=== PATIENT | male | born 1965 | race Hispanic/Latino ===

== ENCOUNTER 2019-11-26 10:54 | Inpatient (IN) | payer OTHER, SELFPAY ==
[2019-11-26] MEDS ORDERED: dexAMETHasone 4 MG/ML VIAL ONE (11:39)
[2019-11-26] MEDS ORDERED: NA CHLORIDE 0.9% 1,000 ML ONE ×3 (11:39→13:07)
[2019-11-26 11:47] LABS: Absolute Lymphocytes (CBC) 0.6 K/uL (0.7-4.9)
[2019-11-26 12:01] LABS: Basophils % 0.3 % (0-1.3); Hematocrit 39.4 % (39.6-49.0); Lymphocytes % 2.2 % (15.3-44.8); MPV 10.3 fL (7.6-11.3); RBC Red Blood Cell Count 4.41 M/uL (4.33-5.43)
[2019-11-26 12:21] LABS: Protime INR 1.18
[2019-11-26 12:24] LABS: Albumin 2.1 g/dL (3.4-5.0); Bilirubin Direct 2.5 mg/dL (0-0.2); Ferritin 1661.9 ng/mL (26-388); Potassium 3.4 mmol/L (3.5-5.1); Protein, Total 7.1 g/dL (6.4-8.2)
[2019-11-26 12:26] LABS: CKMB Creatine Kinase MB 25.4 ng/mL (0.3-3.6); Troponin (Emerg Dept Use Only) 6.33 ng/mL (0.0-0.045)
[2019-11-26 12:28] LABS: Urine Blood 2+ (NEG); Urine Glucose NEGATIVE (NEG); Urine Protein 2+ (NEG); Urine Specific Gravity 1.015 (1.005-1.030)
[2019-11-26] MEDS ORDERED: AZITHROMYCIN 500 MG/250 ML BAG IV ONE (12:30)
[2019-11-26] MEDS ORDERED: HEPARIN/D5W 25,000 UNIT/500 ML BAG IV ONE (12:33)
[2019-11-26] MEDS ORDERED: CEFTRIAXONE/SWI 1gm 1 GM/10 ML SYR ONE (12:36)
[2019-11-26 12:41] LABS: Urine Amorphous Sediment 4+ /HPF (NONE SEEN); Urine Bacteria <20 /HPF (NONE SEEN); Urine Culture Reflex Order NOT NEEDED; Urine RBC <5 /HPF (NONE SEEN)
[2019-11-26] MEDS ORDERED: ZINC SULFATE 220 MG CAP ONE (13:05)
[2019-11-26] MEDS ORDERED: MELATONIN 3 MG TABLET PO ONE (13:15)
[2019-11-26] MEDS ORDERED: ASCORBIC ACID 500 MG TABLET ONE (13:15)
--- NOTE | 2019-11-26 13:18 | RAD REPORT ---
EXAM DESCRIPTION: [place] Single View11/26/2019 11:56 am CLINICAL HISTORY: Shortness of breath/sepsis COMPARISON: none FINDINGS: Mild right basilar opacity. Mild atelectasis left lung base The heart is normal size IMPRESSION: Mild right basilar opacity probably pneumonia
--- NOTE | 2019-11-26 13:26 | RAD REPORT ---
EXAM DESCRIPTION: CT - Thorax Wo Con - 11/26/2019 1:14 pm CLINICAL HISTORY: sob COMPARISON: none TECHNIQUE: Computed axial tomography of the chest was obtained. Contrast was not given secondary to elevated creatinine All CT scans are performed using dose optimization technique as appropriate and may include automated exposure control or mA/KV adjustment according to patient size. FINDINGS: The evaluation of mediastinum, bri and vessels is limited secondary to lack of IV contras t administration. Mild right middle and right lower lobe opacities. Mild left lower lobe atelectasis Calcified mediastinal lymph node. A pleural effusion is not present. A small pericardial effusion or thickening IMPRESSION: Mild right middle and right lower lobe opacities probably pneumonia
[2019-11-26 13:34] LABS: Blood Morphology Comment NOT SEEN (NOT SEEN); Dohle Bodies PRESENT; Platelet Estimate ADEQ
--- NOTE | 2019-11-26 13:51 | ER ---
Nurse's Notes [facility] Name: Vamshi Jones Age: 54 yrs Sex: Male : 1965 Arrival Date: 11/26/2019 Time: 10:58 Bed 5 Private MD: Diagnosis: Pneumonia due to SARS-associated coronavirus Presentation: 11/25 11:03 Chief complaint: Patient states: body aches and SOB x 2 days ago. Pt denies cough, pt aa5 states "I went to a clinic 2 days ago and they said I had a fever and they gave me some kind of shot". 11:03 Coronavirus screen: fever, muscle pain, shortness of breath, Client presents with at aa5 least one sign or symptom that may indicate coronavirus-19. Standard/surgical mask placed on the client. Provider contacted for isolation considerations. Ebola Screen: Patient negative for fever greater than or equal to 101.5 degrees Fahrenheit, and additional compatible Ebola Virus Disease symptoms. Initial Sepsis Screen: Does the patient meet any 2 criteria? Systolic BP < 90 mmHg. HR > 90 bpm. Yes Does the patient have a suspected source of infection? Yes:. Risk Assessment: Do you want to hurt yourself or someone else? Patient reports no desire to harm self or others. Onset of symptoms was November 2019. 11:03 Acuity: YUSUF 2 aa5 11:03 Method Of Arrival: Wheelchair aa5 Triage Assessment: 11:10 Respiratory: Onset: The symptoms/episode began/occurred x 2-3 days, the patient has rb1 moderate shortness of breath. Historical: - Allergies: 11:03 No Known Allergies; aa5 - PMHx: 11:03 Hypertension; aa5 - PSHx: 11:03 None; aa5 - Immunization history:: Adult Immunizations unknown. - Social history:: Smoking status: Patient denies any tobacco usage or history of. Screenin:10 Abuse screen: Denies threats or abuse. Nutritional screening: No deficits noted. rb1 Tuberculosis screening: No symptoms or risk factors identified. Fall Risk None identified. Assessment: 11:10 General: Appears comfortable, Behavior is calm, cooperative, Reports fever for 2-3 rb1 days. Neuro: Level of Consciousness is awake, alert, obeys commands, Oriented to person, place, time, situation. Cardiovascular: Capillary refill < 3 seconds. Respiratory: Reports shortness of breath since x 2-3 days Airway is patent Respiratory effort is even, unlabored, Respiratory pattern is regular, symmetrical, Denies cough. Derm: Skin is diaphoretic. Musculoskeletal: No signs and/or symptoms reported regarding the musculoskeletal system. 12:00 Reassessment: Patient appears in no apparent distress at this time. Patient and/or rb1 family updated on plan of care and expected duration. Pain level reassessed. Patient is alert, oriented x 3, equal unlabored respirations, skin warm/dry/pink. No longer diaphoretic. 13:00 Reassessment: Patient appears in no apparent distress at this time. No changes from rb1 previously documented assessment. 14:00 Reassessment: Patient appears in no apparent distress at this time. Patient and/or rb1 family updated on plan of care and expected duration. Pain level reassessed. Patient is alert, oriented x 3, equal unlabored respirations, skin warm/dry/pink. 15:00 Reassessment: Patient appears in no apparent distress at this time. No changes from rb1 previously documented assessment. 15:15 Reassessment: Gave report to LUIS MANUEL Contreras. Information from the SBAR was given. All rb1 questions asked and answered. Vital Signs: 11:03 BP 82 / 67; Pulse 122; Resp 20 S; Temp 99.7(O); Pulse Ox 98% on R/A; Weight 100.7 kg aa5 (R); Height 5 ft. 9 in. (175.26 cm) (R); Pain 7/10; 11:15 BP 100 / 69; Pulse 119; Resp 17; Pulse Ox 97% ; rb1 12:45 BP 96 / 64; Pulse 112; Resp 18; Pulse Ox 99% on 2 lpm NC; rb1 13:44 BP 102 / 77; Pulse 112; Resp 17; Pulse Ox 99% on 2 lpm NC; rb1 14:30 BP 106 / 74; Pulse 112; Resp 17; Pulse Ox 99% on 2 lpm NC; rb1 15:30 BP 107 / 80; Pulse 108; Resp 18; Pulse Ox 99% on 2 lpm NC; rb1 11:03 Body Mass Index 32.78 (100.70 kg, 175.26 cm) aa5 ED Course: 10:58 Patient arrived in ED. ag5 11:03 Arm band placed on Patient placed in an exam room, on a stretcher. aa5 11:07 Floresita Clay, RN is Primary Nurse. rb1 11:10 Patient has correct armband on for positive identification. Bed in low position. Call rb1 light in reach. Side rails up X 1. athletic monitor on. Pulse ox on. NIBP on. 11:11 Montes De Oca TiaQI-C is PHCP. snw 11:11 Joni Casper MD is Attending Physician. snw 11:17 Triage completed. aa5 11:24 Inserted saline lock: 20 gauge in right antecubital area, using aseptic technique. rb1 Blood collected. 11:26 EKG done, by ED staff, reviewed by Joni Casper MD. em1 11:42 Flu Sent. rb1 11:43 Strep Sent. rb1 11:46 Inserted saline lock: 20 gauge in left antecubital area, using aseptic technique. rb1 11:57 Chest Single View XRAY In Process Unspecified. EDMS 12:29 Time Study Technologist paged at 12:29. eb 12:45 Time Study Technologist returned call at 12:45. eb 13:14 Thorax Wo Con In Process Unspecified. EDMS 13:49 Erickson Warren MD is Hospitalizing Provider. snw 15:45 No provider procedures requiring assistance completed. Patient admitted, IV remains in rb1 place. Administered Medications: 11:19 CANCELLED (Duplicate Order): NS 0.9% (30 ml/kg) 30 ml/kg IV at bolus once; Sepsis snw Protocol 11:30 Drug: Decadron - Dexamethasone 10 mg Route: IVP; Site: right antecubital; aa5 11:44 Follow up: Response: No adverse reaction rb1 11:30 Drug: NS 0.9% 1000 ml Route: IV; Rate: 1 bolus; Site: right antecubital; aa5 12:44 Follow up: IV Status: Completed infusion rb1 12:30 Drug: Heparin (DVT/PE Drip) 18 units/kg/hr - (HEParin 90448 units, D5W 500 ml) rb1 {Co-Signature: aa5 (Bailee Almeida RN).} Route: IV; Rate: calculated rate; Site: right antecubital; 12:32 Drug: Rocephin 1 grams Route: IV; Rate: calculated rate; Site: left antecubital; rb1 12:47 CANCELLED (Per Dr. Madden, secondary to prolonged QT): Zithromax 500 mg IVPB once over snw 1 hrs; mix in 250 mL NS 12:58 Drug: Zinc Sulfate 220 mg Route: PO; rb1 13:42 Follow up: Response: No adverse reaction rb1 12:59 Drug: NS 0.9% 1000 ml Route: IV; Rate: 1000 ml; Site: left antecubital; rb1 13:04 Drug: Ascorbic Acid 500 mg Route: PO; rb1 14:00 Follow up: Response: No adverse reaction rb1 14:08 Drug: Melatonin 3 mg Route: PO; rb1 14:35 Follow up: Response: No adverse reaction rb1 14:09 Drug: vancoMYCIN 1 grams Route: IVPB; Infused Over: 2 hrs; Site: left antecubital; rb1 14:11 Drug: NS 0.9% 1000 ml Route: IV; Rate: 100 ml/hr; Site: left antecubital; rb1 Outcome: 13:51 Decision to Hospitalize by Provider. snw 15:45 Admitted to ICU accompanied by nurse, accompanied by tech, via stretcher, room 1, with rb1 oxygen, on monitor, Report called to LUIS MANUEL Contreras 15:45 Condition: stable 15:45 Instructed on the need for admit. 15:55 Patient left the ED. eb Signatures: Dispatcher [employer] EDTia Martin FNP-C LEGAL SPECIALIST-CsnDickson Thomas em1 Bailee Almeida, LUIS MANUEL RN aa5 Floresita Clay RN RN rb1 Diane Frost Ajare ag5 Bailee Almeida RN aa5 Corrections: (The following items were deleted from the chart) 12:09 11:42 CORONAVIRUS+MR.LAB.BRZ drawn and sent. rb1 EDMS
--- NOTE | 2019-11-26 13:51 | EDPHYS ---
Physician Documentation [facility] Name: Vamshi Jones Age: 54 yrs Sex: Male : 1965 Arrival Date: 11/26/2019 Time: 10:58 Bed 5 Private MD: ED Physician Joni Casper HPI: 11/25 11:23 This 54 yrs old Male presents to ER via Wheelchair with complaints of Blood snw Pressure Problem, Breathing Difficulty, Body Aches, Sweating. 11:23 Onset: The symptoms/episode began/occurred suddenly, 2 day(s) ago, and became snw persistent. Associated signs and symptoms: Pertinent positives: shortness of breath, Pertinent negatives: chest pain. The patient has not experienced similar symptoms in the past. The patient has been recently seen by a physician: 2 day(s) ago, with similar presenting complaints, was given a prescription for antibiotics. Historical: - Allergies: 11:03 No Known Allergies; aa5 - PMHx: 11:03 Hypertension; aa5 - PSHx: 11:03 None; aa5 - Immunization history:: Adult Immunizations unknown. - Social history:: Smoking status: Patient denies any tobacco usage or history of. ROS: 11:22 Constitutional: Negative for fever, chills, and weight loss, Eyes: Negative for injury, snw pain, redness, and discharge, ENT: Negative for injury, pain, and discharge, Neck: Negative for injury, pain, and swelling, Cardiovascular: Negative for chest pain, palpitations, and edema. 11:22 Abdomen/GI: Negative for abdominal pain, nausea, vomiting, diarrhea, and constipation, Back: Negative for injury and pain, : Negative for injury, bleeding, discharge, and swelling, MS/Extremity: Negative for injury and deformity, Skin: Negative for injury, rash, and discoloration, Neuro: Negative for headache, weakness, numbness, tingling, and seizure, Psych: Negative for depression, anxiety, suicide ideation, homicidal ideation, and hallucinations. 11:22 Respiratory: Positive for shortness of breath, Negative for cough. Exam: 11:20 Head/Face: Normocephalic, atraumatic. Eyes: Pupils equal round and reactive to light, snw extra-ocular motions intact. Lids and lashes normal. Conjunctiva and sclera are non-icteric and not injected. Cornea within normal limits. Periorbital areas with no swelling, redness, or edema. ENT: Nares patent. No nasal discharge, no septal abnormalities noted. Tympanic membranes are normal and external auditory canals are clear. Oropharynx with no redness, swelling, or masses, exudates, or evidence of obstruction, uvula midline. Mucous membranes moist. Neck: Trachea midline, no thyromegaly or masses palpated, and no cervical lymphadenopathy. Supple, full range of motion without nuchal rigidity, or vertebral point tenderness. No Meningismus. Chest/axilla: Normal chest wall appearance and motion. Nontender with no deformity. No lesions are appreciated. 11:20 Constitutional: The patient appears alert, awake, anxious, in obvious distress, mildly distressed, pale. 11:20 Cardiovascular: Rate: tachycardic, Rhythm: regular, Pulses: no pulse deficits are appreciated, Heart sounds: normal, Edema: is not appreciated, JVD: is not appreciated. 11:20 ECG was reviewed by the Attending Physician. Vital Signs: 11:03 BP 82 / 67; Pulse 122; Resp 20 S; Temp 99.7(O); Pulse Ox 98% on R/A; Weight 100.7 kg aa5 (R); Height 5 ft. 9 in. (175.26 cm) (R); Pain 7/10; 11:15 BP 100 / 69; Pulse 119; Resp 17; Pulse Ox 97% ; rb1 12:45 BP 96 / 64; Pulse 112; Resp 18; Pulse Ox 99% on 2 lpm NC; rb1 13:44 BP 102 / 77; Pulse 112; Resp 17; Pulse Ox 99% on 2 lpm NC; rb1 14:30 BP 106 / 74; Pulse 112; Resp 17; Pulse Ox 99% on 2 lpm NC; rb1 15:30 BP 107 / 80; Pulse 108; Resp 18; Pulse Ox 99% on 2 lpm NC; rb1 11:03 Body Mass Index 32.78 (100.70 kg, 175.26 cm) aa5 MDM: 11:33 Patient medically screened. snw 12:39 Data reviewed: vital signs, nurses notes. Data interpreted: Pulse oximetry: on room air snw is 98 %. Interpretation: acceptable. Counseling: I had a detailed discussion with the patient and/or guardian regarding: the historical points, exam findings, and any diagnostic results supporting the discharge/admit diagnosis, lab results, radiology results, the need for further work-up and treatment in the hospital, to ICU. 12:41 Physician consultation: Joni Casper MD regarding patient's condition, will admit to [facility] ICU. 11/25 11:13 Order name: Sed Rate; Complete Time: 13:35 snw 11/25 11:13 Order name: C-Reactive Protein; Complete Time: 12:33 snw 11/25 11:13 Order name: T\T\S; Complete Time: 12:54 snw 11/25 11:13 Order name: Amylase, Serum; Complete Time: 12:33 snw 11/25 11:13 Order name: Basic Metabolic Panel; Complete Time: 12:33 snw 11/25 11:13 Order name: Blood Culture Adult (2) snw 11/25 11:13 Order name: CBC with Diff; Complete Time: 13:35 snw 11/25 11:13 Order name: Ckmb; Complete Time: 12:33 snw 11/25 11:13 Order name: CPK; Complete Time: 12:33 snw 11/25 11:13 Order name: Lactate; Complete Time: 12:33 snw 11/25 11:13 Order name: LFT's; Complete Time: 12:33 snw 11/25 11:13 Order name: Lipase; Complete Time: 12:33 snw 11/25 11:13 Order name: Procalcitonin; Complete Time: 12:39 snw 11/25 11:13 Order name: Protime (+inr); Complete Time: 12:39 snw 11/25 11:13 Order name: Ptt, Activated; Complete Time: 12:40 snw 11/25 11:13 Order name: Troponin (emerg Dept Use Only); Complete Time: 12:33 snw 11/25 11:13 Order name: Urine Microscopic Only; Complete Time: 12:42 snw 11/25 11:13 Order name: Flu; Complete Time: 12:18 snw 11/25 11:13 Order name: Strep; Complete Time: 12:02 snw 11/25 11:14 Order name: Ferritin; Complete Time: 12:33 snw 11/25 11:14 Order name: DD; Complete Time: 12:40 snw 11/25 11:34 Order name: Glucose, Ancillary Testing; Complete Time: 11:35 EDMS 11/25 12:00 Order name: Throat Culture EDMS 11/25 12:09 Order name: SARS-COV-2 RT PCR; Complete Time: 13:35 EDMS 11/25 12:12 Order name: Urine Dipstick--Ancillary (enter results); Complete Time: 12:33 eb 11/25 13:31 Order name: Manual Differential; Complete Time: 13:35 EDMS 11/25 13:41 Order name: ABO/RH no charge; Complete Time: 13:48 EDMS 11/25 14:41 Order name: Lipid Profile EDMS 11/25 14:41 Order name: Lipid Profile; Complete Time: 15:42 EDMS 11/25 11:13 Order name: Chest Single View XRAY; Complete Time: 13:35 snw 11/25 11:13 Order name: Accucheck; Complete Time: 11:26 snw 11/25 12:58 Order name: Thorax Wo Con; Complete Time: 13:35 EDMS 11/25 14:40 Order name: Heart Healthy EDMS 11/25 14:40 Order name: Echo with Doppler EDMS 11/25 14:41 Order name: Troponin I EDKY 11/25 14:41 Order name: Troponin I EDKY 11/25 14:41 Order name: Troponin I EDKY 11/25 14:41 Order name: Troponin I EDKY 11/25 14:48 Order name: CBC without Diff EDMS 11/25 14:48 Order name: CBC without Diff EDMS 11/25 14:48 Order name: CBC without Diff EDMS 11/25 14:48 Order name: Comprehensive Metabolic Panel EDKY 11/25 14:48 Order name: Comprehensive Metabolic Panel EDKY 11/25 14:48 Order name: Comprehensive Metabolic Panel EDMS 11/25 14:50 Order name: Diet Regular; Complete Time: 14:50 eb 11/25 14:50 Order name: Cortisol EDMS 11/25 15:34 Order name: Lactate Sepsis 2 HR Follow-up; Complete Time: 15:42 EDMS 11/25 11:13 Order name: Cardiac monitoring; Complete Time: 11:31 snw 11/25 11:13 Order name: EKG - Nurse/Tech; Complete Time: 11:26 snw 11/25 11:13 Order name: IV Saline Lock - Large Bore; Complete Time: 11:31 snw 11/25 11:13 Order name: Labs collected and sent; Complete Time: 11:31 snw 11/25 11:13 Order name: O2 Per Protocol; Complete Time: 11:31 snw 11/25 11:13 Order name: O2 Sat Monitoring; Complete Time: 11:32 snw 11/25 11:13 Order name: Urine Dipstick-Ancillary (obtain specimen); Complete Time: 12:11 snw 11/25 11:52 Order name: Labs - recollect needed: blue top; Complete Time: 12:15 eb EC:20 Rate is 118 beats/min. Rhythm is regular. QRS [place] is Normal. No Q waves. Clinical snw impression: Sinus tachycardia. Administered Medications: 11:19 CANCELLED (Duplicate Order): NS 0.9% (30 ml/kg) 30 ml/kg IV at bolus once; Sepsis snw Protocol 11:30 Drug: Decadron - Dexamethasone 10 mg Route: IVP; Site: right antecubital; aa5 11:44 Follow up: Response: No adverse reaction rb1 11:30 Drug: NS 0.9% 1000 ml Route: IV; Rate: 1 bolus; Site: right antecubital; aa5 12:44 Follow up: IV Status: Completed infusion rb1 12:30 Drug: Heparin (DVT/PE Drip) 18 units/kg/hr - (HEParin 35728 units, D5W 500 ml) rb1 {Co-Signature: aa5 (Bailee Almeida RN).} Route: IV; Rate: calculated rate; Site: right antecubital; 12:32 Drug: Rocephin 1 grams Route: IV; Rate: calculated rate; Site: left antecubital; rb1 12:47 CANCELLED (Per Dr. Madden, secondary to prolonged QT): Zithromax 500 mg IVPB once over snw 1 hrs; mix in 250 mL NS 12:58 Drug: Zinc Sulfate 220 mg Route: PO; rb1 13:42 Follow up: Response: No adverse reaction rb1 12:59 Drug: NS 0.9% 1000 ml Route: IV; Rate: 1000 ml; Site: left antecubital; rb1 13:04 Drug: Ascorbic Acid 500 mg Route: PO; rb1 14:00 Follow up: Response: No adverse reaction rb1 14:08 Drug: Melatonin 3 mg Route: PO; rb1 14:35 Follow up: Response: No adverse reaction rb1 14:09 Drug: vancoMYCIN 1 grams Route: IVPB; Infused Over: 2 hrs; Site: left antecubital; rb1 14:11 Drug: NS 0.9% 1000 ml Route: IV; Rate: 100 ml/hr; Site: left antecubital; rb1 Disposition: 16:05 Co-signature as Attending Physician, Joni Casper MD I agree with the assessment and kdr plan of care. Disposition: 11/26/19 13:51 Hospitalization ordered by Erickson Warren for Inpatient Admission. Preliminary diagnosis is Pneumonia due to SARS-associated coronavirus. - Bed requested for Intensive Care Unit. - Status is Inpatient Admission. eb - Condition is Fair. - Problem is new. - Symptoms have worsened. Signatures: Dispatcher [employer] EDKY Joni Casper MD MD kdr Tia Montes De Oca, BEHAVIORAL CONSULTANT-C BEHAVIORAL CONSULTANT-Csnw Bailee Almeida RN RN aa5 Floresita Clay RN RN rb1 Diane Frost RN aa5 Corrections: (The following items were deleted from the chart) 11:19 11:13 NS 0.9% (30 ml/kg) 30 ml/kg IV at bolus once; Sepsis Protocol ordered. [facility] snw 12:09 11:15 CORONAVIRUS+MR.LAB.BRZ ordered. EDKY EDMS 12:47 12:19 Zithromax 500 mg IVPB once over 1 hrs; mix in 250 mL NS ordered. sn snw 12:47 12:47 Zithromax 500 mg IVPB once over 1 hrs; mix in 250 mL NS ordered. sn snw 12:57 11:45 Chest For PE Angio+CT.RAD.BRZ ordered. EDKY EDMS 13:17 11:13 Adkins ordered. snw rb1 14:52 13:51 Hospitalization Ordered by Erickson Warren MD for Inpatient Admission. aa5 Preliminary diagnosis is Pneumonia due to SARS-associated coronavirus. Bed requested for Intensive Care Unit. Status is Inpatient Admission. Condition is Fair. Problem is new. Symptoms have worsened. snw 15:55 14:52 11/26/2019 13:51 Hospitalization Ordered by Erickson Warren MD for Inpatient eb Admission. Preliminary diagnosis is Pneumonia due to SARS-associated coronavirus. Bed requested for Intensive Care Unit. Status is Inpatient Admission. Condition is Fair. Problem is new. Symptoms have worsened. aa5
[2019-11-26] MEDS ORDERED: VANCOMYCIN/NS 1 gm 1 GM/250 ML BAG IV ONE (14:00)
[2019-11-26] MEDS ORDERED: ASPIRIN 325 MG TAB PO ONE (14:36)
[2019-11-26] MEDS ORDERED: NITROGLYCERIN 0.4 MG/TAB SL PRN (14:36)
--- NOTE | 2019-11-26 14:50 | P.HP ---
Certification for Inpatient With expected LOS: >2 Midnights Practitioner: I am a practitioner with admitting privileges, knowledge of patient current condition, hospital course, and medical plan of care. Services: Services provided to patient in accordance with Admission requirements found in Title 42 Section 412.3 of the Code of Federal Regulations Patient History Date of Service: 11/26/19 Reason for admission: Shock dizziness History of Present Illness: Patient is 54 years of age she was diagnosed with akng virus 5 weeks ago became sick over the weekend started on Thursday where he started having some fever and started complaining of shortness of breath admission precipitated by year dizziness and was found to have low blood pressure apart from hypertension he has no other medical problems as some problems with his legs - Past Medical/Surgical History -: Hypertension Review of Systems 10-point ROS is otherwise unremarkable General: Weakness, Malaise Respiratory: Shortness of Breath Physical Examination - Vital Signs Temperature: 99.7 F Blood Pressure: 82/67 Pulse: 122 Respirations: 20 Pulse Ox (%): 98 - Physical Exam General: Alert, Oriented x3 HEENT: Atraumatic Neck: Supple Respiratory: Clear to auscultation bilaterally Cardiovascular: No edema, Regular rate/rhythm, Normal S1 S2 Gastrointestinal: Normal bowel sounds, Soft and benign, Non-distended Musculoskeletal: No clubbing, No swelling Integumentary: No rashes, No breakdown Neurological: Normal speech, Normal strength at 5/5 x4 extr, Cranial nerves 3-12 intact - Studies Laboratory Data (last 24 hrs) 11/26/19 12:03: PT 13.9 H, INR 1.18, APTT 29.5 11/26/19 11:24: Sodium 131 L, Potassium 3.4 L, BUN 49 H, Creatinine 2.41 H, Glucose 126 H, Total Bilirubin 3.0 H, AST 81 H, ALT 94 H, Alkaline Phosphatase 237 H, Amylase 8 L, Lipase 46 L 11/26/19 11:24: WBC 28.8 H*, Hgb 13.2 L, Hct 39.4 L, Plt Count 196 Microbiology Data (last 24 hrs): 11/26/19 11:37 Nasopharnyx Influenza Type A Antigen Screen - Final 11/26/19 11:37 Nasopharnyx Influenza Type B Antigen Screen - Final 11/26/19 11:37 Throat Group A Streptococcus Rapid Screen - Final Assessment and Plan - Problems (Diagnosis) (1) Shock Current Visit: Yes Status: Acute Plan: Patient is 54 years of age diagnosed with coronal wire S infection 5 weeks ago about a week ago it started having problems at some fever he was treated in the clinic became worse started having more shortness of breath patient's kidney function is worse she is troponins are elevated white count is also significantly elevated CRP in ferritin levels are also high EKG shows no acute changes history of hypertension has been taking some medications plan is to admit to the ICU IV fluids cardiac consultation serial EKGs broad-spectrum antibiotic coverage cultures saturation satisfactory CT scan without contrast does not show any interstitial changes or kang virus pneumonia urinalysis is no evidence of infection (2) Acute renal failure Current Visit: Yes Status: Acute Plan: Patient's renal function is abnormal most likely prerenal continue with IV fluids the need an ultrasound of the kidneys Qualifiers: Acute renal failure type: unspecified Qualified Code(s): N17.9 - Acute kidney failure, unspecified - Advance Directives Does patient have a Living Will: No Does patient have a Durable POA for Healthcare: No
[2019-11-26] MEDS: NA CHLORIDE 0.9% 1,000 ML IV SCH ×2 (15:00→20:28)
[2019-11-26] MEDS ORDERED: Pharmacy Consult 1 EA XX PRN (15:34)
[2019-11-26] MEDS ORDERED: VANCOMYCIN 1.5 GM in NA CHLORIDE 0.9% 500 ML IVPB ONE (17:00)
[2019-11-26 17:31] LABS: Potassium 3.6 mmol/L (3.5-5.1)
[2019-11-26] MEDS ORDERED: HEPARIN/D5W 25,000 UNIT/500 ML BAG IV SCH ×2 (18:00)
[2019-11-27] MEDS: NA CHLORIDE 0.9% 1,000 ML IV SCH ×3 (02:52→19:34)
[2019-11-27] MEDS ORDERED: METOPROLOL TARTRATE 5 MG/5 ML INJ IV STA (04:38)
[2019-11-27] MEDS ORDERED: METOPROLOL TARTRATE 5 MG/5 ML INJ IV ONE (04:54)
[2019-11-27] MEDS ORDERED: DIGOXIN 0.25 MG/ML AMP IV ONE (05:23)
[2019-11-27] MEDS ORDERED: CEFTRIAXONE/SWI 1gm 1 GM/10 ML SYR ONE (05:43)
[2019-11-27] MEDS ORDERED: CEFTRIAXONE 1 GM/NS 50 ML 1 GM/50 ML BAG IV SCH (06:00)
[2019-11-27] MEDS ORDERED: CEFTRIAXONE 1,000 MG in WATER FOR INJ,STERILE 10 ML IVP SCH (06:00)
[2019-11-27 06:11] LABS: Hematocrit 35.8 % (39.6-49.0); MPV 10.6 fL (7.6-11.3); RBC Red Blood Cell Count 3.97 M/uL (4.33-5.43)
[2019-11-27 06:32] LABS: Albumin 1.6 g/dL (3.4-5.0); Bilirubin Total 1.3 mg/dL (0.2-1.0); Potassium 3.5 mmol/L (3.5-5.1); Protein, Total 5.9 g/dL (6.4-8.2)
--- NOTE | 2019-11-27 08:55 | P.PN ---
Subjective Date of Service: 11/27/19 Chief Complaint: Shock dizziness Subjective: Improving (Patient says he is feeling better ran into AFib last night CT angiogram done the results pending white count elevated) Review of Systems 10-point ROS is otherwise unremarkable General: Weakness Respiratory: Shortness of Breath Physical Examination - Vital Signs Temperature: 96.6 F Blood Pressure: 103/85 Pulse: 143 Respirations: 29 Pulse Ox (%): 98 - Physical Exam General: Alert, In no apparent distress, Oriented x3 Respiratory: Clear to auscultation bilaterally Cardiovascular: No edema, Regular rate/rhythm, Irregular heart rate/rhythm Gastrointestinal: Normal bowel sounds, Soft and benign Integumentary: No rashes, No breakdown - Studies Laboratory Data (last 24 hrs) 11/26/19 12:03: PT 13.9 H, INR 1.18, APTT 29.5 11/26/19 11:24: Sodium 131 L, Potassium 3.4 L, BUN 49 H, Creatinine 2.41 H, Glucose 126 H, Total Bilirubin 3.0 H, AST 81 H, ALT 94 H, Alkaline Phosphatase 237 H, Amylase 8 L, Lipase 46 L 11/26/19 11:24: WBC 28.8 H*, Hgb 13.2 L, Hct 39.4 L, Plt Count 196 Microbiology Data (last 24 hrs): 11/26/19 11:37 Nasopharnyx Influenza Type A Antigen Screen - Final 11/26/19 11:37 Nasopharnyx Influenza Type B Antigen Screen - Final 11/26/19 11:37 Throat Group A Streptococcus Rapid Screen - Final Assessment & Plan - Problems (Diagnosis) (1) Shock Current Visit: Yes Status: Acute Plan: Patient feels better he went into AFib last night continue with IV fluids echocardiogram is pending troponin is trending down CT angiogram is pending he also has a prolonged QT interval white count may have an elevated from the dose of Decadron that he got in the emergency room as not hypoxic will not give him any steroids for now (2) Acute renal failure Current Visit: Yes Status: Acute Plan: Renal function improving Qualifiers: Acute renal failure type: unspecified Qualified Code(s): N17.9 - Acute k idney failure, unspecified
--- NOTE | 2019-11-27 08:56 | RAD REPORT ---
EXAM DESCRIPTION: CT - Chest Angio - 11/27/2019 8:43 am CLINICAL HISTORY: Chest pain. RO PE COMPARISON: Thorax Wo Con dated 11/26/2019 TECHNIQUE: CT angiogram of the pulmonary arteries was performed with MIP. All CT scans are performed using dose optimization technique as appropriate and may include automated exposure control or mA/KV adjustment according to patient size. FINDINGS: No evidence of pulmonary thromboembolism. No acute aortic finding demonstrated. [id number] opacities in both lung bases likely represent atelectasis or developing pneumonia. Trace bilateral pleural fluid. No concerning bony finding. IMPRESSION: No evidence of pulmonary thromboembolism. Mild to moderate opacities in both lung bases may represent atelectasis or infiltrate. Trace bilatera l pleural effusions.
[2019-11-27] MEDS: ENOXAPARIN 100 MG/ML SYR SQ SCH ×2 (11:14→22:58)
[2019-11-27] MEDS ORDERED: ACETAMINOPHEN 500 MG TAB PO PRN (14:58)
[2019-11-27] MEDS: dexAMETHasone 4 MG/ML VIAL IV SCH (20:47)
[2019-11-27] MEDS ORDERED: ACETAMINOPHEN 500 MG TAB ONE (21:26)
[2019-11-28] MEDS: NA CHLORIDE 0.9% 1,000 ML IV SCH ×4 (02:06→20:43)
[2019-11-28 04:35] LABS: Hematocrit 33.3 % (39.6-49.0); RBC Red Blood Cell Count 3.72 M/uL (4.33-5.43)
[2019-11-28] MEDS ORDERED: VANCOMYCIN 1.75 GM in NA CHLORIDE 0.9% 500 ML IVPB SCH (05:00)
[2019-11-28 05:19] LABS: Albumin 1.4 g/dL (3.4-5.0); Potassium 3.9 mmol/L (3.5-5.1); Protein, Total 5.6 g/dL (6.4-8.2)
[2019-11-28 05:30] LABS: Troponin I 0.97 ng/mL (0.0-0.045)
[2019-11-28] MEDS: CEFTRIAXONE/SWI 1gm 1 GM/10 ML SYR IVP SCH (08:08)
[2019-11-28] MEDS: dexAMETHasone 4 MG/ML VIAL IV SCH ×2 (08:08→20:43)
[2019-11-28] MEDS: ENOXAPARIN 100 MG/ML SYR SQ SCH ×2 (08:09→20:43)
--- NOTE | 2019-11-28 09:35 | CON ---
Date of Consultation: 11/26/2019 Reason For Consultation: Elevated troponin. History Of Present Illness: Mr. Jones is a 54-year-old Latin-[place] male, admitted to Dr. Roger ocppola with COVID pneumonia, was noted to have elevated troponin, prolonged QT on the EKG. He was sept ic. He came in with shortness of breath, hypotension, body aches. He has been treated with antibiot ics and heparin for now. No chest pain has been reported. No cardiac symptoms reported. Past Medical History: Unremarkable. Allergies: NONE. Medications: At home are none. Review of Systems: Negative. Social History: Negative. Physical Examination: Vital Signs: Stable. His heart rate was sinus tach at 109. He was afebrile. HEENT: Negative. Neck: Supple with no bruit. Chest: Crackles throughout. Cardiac: Tachycardia. No murmurs, gallops, or rubs. Abdomen: Benign. Extremities: No clubbing, cyanosis, or edema. Diagnostic Data: His creatinine is 1.86. White count of 29,000. Troponin is 6.33. His D-dimer was 3997. His CRP was 449. Procalcitonin was 24.2. His ferritin level was 1661. His chest x-ray show ed right lower lobe pneumonia. EKG showed prolonged QT. Impression And Plan: Mr. Jones is a patient, who really has no significant past medical history, but he has COVID pneumonia. He is septic, has prolonged QT, elevated troponin, elevated BNP, elevat ed CRP, elevated D-dimer. Most of those may have been related to his acute renal failure. He certai nly could have congestive heart failure as well. He is on antibiotics and he is on heparin. [facility] x-ray did not show CHF, but showing a pneumonia. I will continue his present regimen. I think he should be hydrated. We should obtain an echocardiogram on Thursday and see what his ejection fraction is before making further decisions. Certainly with his present sepsis, I have absolutely no intenti on of taking him to the [facility] at this point. I will continue to follow as needed. HI/HOMA Voice ID: [id number] Report ID: [id number]
[2019-11-28] MEDS: VANCOMYCIN 1.75 GM in NA CHLORIDE 0.9% 500 ML IVPB SCH (17:22)
[2019-11-29] MEDS: NA CHLORIDE 0.9% 1,000 ML IV SCH (04:14)
[2019-11-29] MEDS: VANCOMYCIN 1.75 GM in NA CHLORIDE 0.9% 500 ML IVPB SCH ×2 (05:18→17:34)
[2019-11-29 05:35] LABS: C-Reactive Protein 99.2 mg/L (<3.00); Ferritin 735.4 ng/mL (26-388)
[2019-11-29 05:45] LABS: Troponin I 0.6 ng/mL (0.0-0.045)
[2019-11-29] MEDS: dexAMETHasone 4 MG/ML VIAL IV SCH ×2 (08:08→20:44)
[2019-11-29] MEDS: CEFTRIAXONE/SWI 1gm 1 GM/10 ML SYR IVP SCH (08:09)
[2019-11-29] MEDS: ENOXAPARIN 100 MG/ML SYR SQ SCH ×2 (08:10→20:43)
--- NOTE | 2019-11-29 09:15 | ECHO ---
HEIGHT: 5 ft 9 in WEIGHT: 237 lb 14.4 oz DATE OF STUDY: 11/28/[address]: Erickson Warren MD 2-DIMENSIONAL: YES M.MODE: YES DOPPLER: YES COLOR FLOW: YES TDS: NO PORTABLE: YES DEFINITY: NO BUBBLE STUDY: NO DIAGNOSIS: SHOCK CARDIAC HISTORY: CATHERIZATION: NO SURGERY: NO PROSTHETIC VALVE: NO PACEMAKER: NO MEASUREMENTS (cm) DIASTOLIC (NORMALS) SYSTOLIC (NORMALS) IVSd 1.2 (0.6-1.2) LA Diam 4.3 (1.9-4.0) LVEF 62% LVIDd 5.0 (3.5-5.7) LVIDs 3.3 (2.0-3.5) %FS 33% LVPWd 1.2 (0.6-1.2) Ao Diam 3.1 (2.0-3.7) 2 DIMENSIONAL ASSESSMENT: RIGHT ATRIUM: NORMAL LEFT ATRIUM: ENLARGED RIGHT VENTRICLE: APPEARS NORMAL LEFT VENTRICLE: LOW NORMAL TRICUSPID VALVE: MITRAL VALVE: PULMONIC VALVE: NOT SEEN AORTIC VALVE: NORMAL PERICARDIAL EFFUSION: NONE AORTIC ROOT: NORMAL LEFT VENTRICULAR WALL MOTION: MILD GLOBAL HYPOKINESIS. DOPPLER/COLOR FLOW: COMMENTS: LOW NORMAL LEFT VENTRICULAR EJECTION FRACTION 50-55% WITH MILD GLOBAL HYPOKINESIS. MILD MITRAL REGURGITATION. MODERATE TRICUSPID REGURGITATION. LEFT ATRIAL ENLARGEMENT. TECHNOLOGIST: Ivone DUGGAN
--- NOTE | 2019-11-29 09:30 | P.PN ---
Subjective Date of Service: 11/28/19 Patient states that he feels much better. His chest if pain is improved. Troponins were quite elevated so he will get cardiac catheterization in the morning. Patient will be NPO. Review of Systems 10-point ROS is otherwise unremarkable Physical Examination - Vital Signs Temperature: 98.2 F Blood Pressure: 137/97 Pulse: 85 Respirations: 14 Pulse Ox (%): 97 - Physical Exam General: Alert, In no apparent distress, Oriented x3 Respiratory: Clear to auscultation bilaterally, Normal air movement Cardiovascular: Regular rate/rhythm, Normal S1 S2, Systolic murmur Gastrointestinal: Normal bowel sounds, Soft and benign, Non-distended, No tenderness Musculoskeletal: No clubbing, No swelling, No tenderness Neurological: Normal strength at 5/5 x4 extr, Sensation intact, Cranial nerves 3-12 intact - Studies Microbiology Data (last 24 hrs): 11/26/19 11:37 Throat Culture & Sensitivity - Final NORMAL UPPER RESPIRATORY NICA GROWN. Medications List Reviewed: Yes Assessment & Plan - Problems (Diagnosis) (1) COVID-19 Current Visit: Yes Status: Acute (2) Acute myocardial infarction Current Visit: Yes Status: Acute (3) Sepsis Current Visit: Yes Status: Acute (4) Leukocytosis Current Visit: Yes Status: Acute (5) Acute renal failure Current Visit: Yes Status: Acute Qualifiers: Acute renal failure type: unspecified Qualified Code(s): N17.9 - Acute kidney failure, unspecified - Plan Plan: 1. Continue with IV fluids and IV antibiotics 2. Monitor renal function closely 3. Appreciate cardiology consultation 4. Continue with cardiac meds 5. Monitor respiratory status closely 6. Continue on telemetry 7. GI and DVT prophylaxis - Advance Directives Does patient have a Living Will: No Does patient have a Durable POA for Healthcare: No
[2019-11-29 11:34] LABS: Absolute Lymphocytes (CBC) 1.6 K/uL (0.7-4.9); Basophils % 0.1 % (0-1.3); Hematocrit 33.8 % (39.6-49.0); Lymphocytes % 7.2 % (15.3-44.8); MPV 9.2 fL (7.6-11.3); RBC Red Blood Cell Count 3.72 M/uL (4.33-5.43)
[2019-11-29] MEDS ORDERED: HEPA 1000U/500MLS 1,000 UNIT/500 ML BAG IV ONE (11:38)
[2019-11-29] MEDS ORDERED: MIDAZOLAM HCL 2 MG/2 ML INJ ONE (11:39)
[2019-11-29] MEDS ORDERED: FENTANYL CITR 100 MCG/2 ML ONE (11:40)
[2019-11-29] MEDS ORDERED: NA CHLORIDE 0.9% 0 ML ONE (11:40)
[2019-11-29] MEDS ORDERED: ATROPINE SULF 1 MG/10 ML SYR IV ONE (11:40)
[2019-11-29] MEDS ORDERED: NITROGLYCERIN 100 MCG/ML SYR (for cath lab use only) IV ONE (11:40)
[2019-11-29 11:52] LABS: BUN Blood Urea Nitrogen 28 mg/dL (7-18); Bicarbonate 28 mmol/L (21-32); Glucose Level 155 mg/dL (74-106); Magnesium 2.1 mg/dL (1.8-2.4); NT PRO-BNP 16812 pg/mL (<125); Phosphorus 2.2 mg/dL (2.5-4.9); Sodium Level 141 mmol/L (136-145)
[2019-11-29] MEDS ORDERED: NA CHLORIDE 0.9% 500 ML ONE (12:28)
[2019-11-29] MEDS: METOPROLOL TAR 25 MG TAB PO SCH (17:31)
[2019-11-29] MEDS: ATORVASTATIN 10 MG TAB PO SCH (20:44)
[2019-11-29] MEDS ORDERED: VANCOMYCIN 250 MG in NA CHLORIDE 0.9% 50 ML IVPB ONE (21:00)
[2019-11-29] MEDS: ACETAMINOPHEN 500 MG TAB PO PRN (23:53)
[2019-11-30] MEDS: METOPROLOL TAR 25 MG TAB PO SCH ×2 (05:08→17:18)
[2019-11-30 05:57] LABS: Absolute Lymphocytes (CBC) 1.3 K/uL (0.7-4.9); Basophils % 0.1 % (0-1.3); Hematocrit 35.9 % (39.6-49.0); Lymphocytes % 5.5 % (15.3-44.8); RBC Red Blood Cell Count 3.99 M/uL (4.33-5.43)
[2019-11-30 05:59] LABS: BUN Blood Urea Nitrogen 28 mg/dL (7-18); Bicarbonate 28 mmol/L (21-32); Glucose Level 158 mg/dL (74-106); Potassium 4.2 mmol/L (3.5-5.1); Sodium Level 139 mmol/L (136-145)
[2019-11-30 06:09] LABS: C-Reactive Protein 49.4 mg/L (<3.00); Ferritin 666.1 ng/mL (26-388)
[2019-11-30 06:41] LABS: Blood Morphology Comment NOT SEEN (NOT SEEN); Platelet Estimate ADEQ
[2019-11-30] MEDS: dexAMETHasone 4 MG/ML VIAL IV SCH ×2 (08:19→20:05)
[2019-11-30] MEDS: ENOXAPARIN 100 MG/ML SYR SQ SCH ×2 (08:19→20:06)
[2019-11-30] MEDS: ASPIRIN EC 81 MG TAB PO SCH (08:19)
[2019-11-30] MEDS: CLOPIDOGREL 75 MG TABLET PO SCH (08:19)
[2019-11-30] MEDS: CEFTRIAXONE/SWI 1gm 1 GM/10 ML SYR IVP SCH (08:21)
[2019-11-30] MEDS: VANCOMYCIN 2 GM in NA CHLORIDE 0.9% 500 ML IVPB SCH ×2 (08:27→20:05)
[2019-11-30] MEDS: ATORVASTATIN 10 MG TAB PO SCH (20:05)
[2019-11-30] MEDS: ACETAMINOPHEN 500 MG TAB PO PRN (20:30)
[2019-12-01] MEDS: METOPROLOL TAR 25 MG TAB PO SCH ×2 (05:28→16:25)
[2019-12-01 05:37] LABS: Absolute Lymphocytes (CBC) 1.3 K/uL (0.7-4.9); Basophils % 0.2 % (0-1.3); Hematocrit 34.9 % (39.6-49.0); Lymphocytes % 6.4 % (15.3-44.8); MPV 9.1 fL (7.6-11.3); RBC Red Blood Cell Count 3.87 M/uL (4.33-5.43)
[2019-12-01 05:48] LABS: BUN Blood Urea Nitrogen 24 mg/dL (7-18); Bicarbonate 30 mmol/L (21-32); Ferritin 580.6 ng/mL (26-388); Glucose Level 134 mg/dL (74-106); Potassium 4.1 mmol/L (3.5-5.1); Sodium Level 139 mmol/L (136-145)
[2019-12-01] MEDS: dexAMETHasone 4 MG/ML VIAL IV SCH ×3 (09:00→20:29)
[2019-12-01] MEDS: ACETAMINOPHEN 500 MG TAB PO PRN (09:15)
--- NOTE | 2019-12-01 09:17 | P.PN ---
Subjective Date of Service: 11/29/19 Patient status post heart catheterization. No significant atherosclerotic disease. Medical management is indicated. Monitor patient as he still has a leukocytosis. Continue with antibiotic coverage. Cultures are negative at this time. Possible discharge tomorrow if he continues to improve. Review of Systems 10-point ROS is otherwise unremarkable Physical Examination - Vital Signs Temperature: 100.1 F Blood Pressure: 142/86 Pulse: 105 Respirations: 22 Pulse Ox (%): 94 - Physical Exam General: Alert, In no apparent distress, Oriented x3 Respiratory: Clear to auscultation bilaterally, Normal air movement Cardiovascular: Regular rate/rhythm, Normal S1 S2, No murmurs Gastrointestinal: Normal bowel sounds, Soft and benign, Non-distended, No tenderness Musculoskeletal: No clubbing, No swelling, No tenderness Neurological: Sensation intact, Cranial nerves 3-12 intact - Studies Medications List Reviewed: Yes Assessment & Plan - Problems (Diagnosis) (1) COVID-19 Current Visit: Yes Status: Acute (2) Acute myocardial infarction Current Visit: Yes Status: Acute (3) Sepsis Current Visit: Yes Status: Acute (4) Leukocytosis Current Visit: Yes Status: Acute (5) Acute renal failure Current Visit: Yes Status: Acute Qualifiers: Acute renal failure type: unspecified Qualified Code(s): N17.9 - Acute kidney failure, unspecified - Plan Plan: 1. Continue with IV fluids and IV antibiotics; unsure as to the source of infection 2. Monitor renal function closely; status post heart catheterization 3. Appreciate cardiology consultation; medical management 4. Continue with cardiac meds 5. Monitor respiratory status closely; O2 sats on room air are stable. Will monitor for any worsening. 6. Continue on telemetry 7. GI and DVT prophylaxis Discharge Plan: Home Plan to discharge in: Greater than 2 days - Advance Directives Does patient have a Living Will: No Does patient have a Durable POA for Healthcare: No - Code Status/Comfort Care Code Status Assessed: Yes Code Status: Full Code Critical Care: No Time Spent Managing PTS Care (In Minutes): 35
--- NOTE | 2019-12-01 09:21 | P.PN ---
Subjective Date of Service: 11/30/19 Patient is still having some low-grade fevers. He does clinically look to be feeling a little worse although he states he is doing okay. His appetite is diminished. His labs CT scan did reveal by basilar infiltrates. His CRP is slowly trending downward. Inflammatory markers looked to be moving in the right direction. He remains on anti coagulation. He also remains on IV steroids. He was not given Remdisivir. Review of Systems 10-point ROS is otherwise unremarkable Physical Examination - Vital Signs Temperature: 100.1 F Blood Pressure: 142/86 Pulse: 105 Respirations: 22 Pulse Ox (%): 94 - Physical Exam General: Alert, In no apparent distress, Oriented x3 Respiratory: Diminished, Rhonchi/gurgles Cardiovascular: Regular rate/rhythm, Normal S1 S2, Systolic murmur Gastrointestinal: Normal bowel sounds, Soft and benign, Non-distended, No tenderness Musculoskeletal: No clubbing, Swelling Integumentary: No rashes Neurological: Sensation intact, Cranial nerves 3-12 intact - Studies Medications List Reviewed: Yes Assessment & Plan - Problems (Diagnosis) (1) COVID-19 Current Visit: Yes Status: Acute (2) Acute myocardial infarction Current Visit: Yes Status: Acute (3) Sepsis Current Visit: Yes Status: Acute (4) Leukocytosis Current Visit: Yes Status: Acute (5) Acute renal failure Current Visit: Yes Status: Acute Qualifiers: Acute renal failure type: unspecified Qualified Code(s): N17.9 - Acute kidney failure, unspecified - Plan Plan: 1. Continue with steroids and antibiotics 2. Monitor hydration status. Patient is not eating and drinking that well 3. Monitor room her oxygenation as he has decreased 4. Patient remains having low-grade fever. This possibly is a sequelae to his COVID-19 pneumonia. 5. Monitor blood pressure and blood sugars closely 6. GI and DVT prophylaxis - Advance Directives Does patient have a Living Will: No Does patient have a Durable POA for Healthcare: No - Code Status/Comfort Care Code Status: Full Code
[2019-12-01] MEDS: CEFTRIAXONE/SWI 1gm 1 GM/10 ML SYR IVP SCH (09:57)
[2019-12-01] MEDS: ENOXAPARIN 100 MG/ML SYR SQ SCH ×2 (09:58→20:29)
[2019-12-01] MEDS: CLOPIDOGREL 75 MG TABLET PO SCH (10:01)
[2019-12-01] MEDS: ASPIRIN EC 81 MG TAB PO SCH (10:02)
[2019-12-01] MEDS: VANCOMYCIN 2 GM in NA CHLORIDE 0.9% 500 ML IVPB SCH ×2 (10:02→20:30)
[2019-12-01] MEDS ORDERED: NA CHLORIDE 0.9% 500 ML ONE (10:57)
--- NOTE | 2019-12-01 11:38 | RAD REPORT ---
EXAM DESCRIPTION: RAD - Chest Single View - 12/01/2019 11:20 am CLINICAL HISTORY: Temp, fever COMPARISON: CT chest November 26, portable chest November 25 TECHNIQUE: AP portable chest image was obtained 12/01/2019 11:20 am . FINDINGS: Lung volumes remain low. Right base opacification seen on the November 25 chest film has ирина rly fully resolved. Minimal amount of stranding remains. No new left lung base finding. No significan t failure or volume overload. Heart and vasculature are normal. No measurable pleural effusion and no pneumothorax. No acute bony abnormality seen. No acute aortic findings suspected. IMPRESSION: Near complete clearing of the right base opacification since November 26. No new or progressive finding.
--- NOTE | 2019-12-01 11:56 | OP ---
Date of Procedure: 11/29/2019 Surgeon: Sujit Madden MD Veneer Redrier: Celina Boateng. The patient had an Angio-Seal used to close the right common femoral artery. He will remain in the h ospital for at least 2 hours. He can be discharged as far as I am concerned on the above-mentioned m edication. I would like to see him in the office in 2 weeks. If he continues to have symptoms, we w ill have to readdress his coronaries. Procedure: Left heart catheterization with selective coronary arteriogram. Indication For Procedure: Elevated troponin. History Of Present Illness: Mr. Jones is a patient who had recent COVID positive pneumonia, came in with chest pain, positive troponin. A catheterization was planned as an inpatient. He was broug ht to the greenhouse laborer on 11/29/2019 as an inpatient, prepped and draped in the routine sterile fashion. Given Versed for sedation. A 6-Ivorian sheath was introduced in the right common femoral artery succ essfully. A JL4 catheter was used to cannulate the left main, which was normal. The circumflex was normal. He had a trifurcating proximal LAD first diagonal that was split in 2 different branches. T here was about a 40%-50% stenosis in all these vessels. Distally was normal. The RCA was normal. T here were no complications or blood loss. The patient tolerated the procedure well. Anesthesia: Total conscious sedation was 30 minutes. Final Diagnosis: Moderate coronary artery disease. Plan: Plan is for medical therapy with aspirin, Plavix, statin and beta blockers. HI/HOMA Voice ID: [id number] Report ID: [id number]
[2019-12-01] MEDS: ACETAMINOPHEN 500 MG TAB PO SCH ×2 (16:00→22:52)
[2019-12-01] MEDS: ATORVASTATIN 10 MG TAB PO SCH (20:29)
[2019-12-02 05:05] VITALS: BMI 34.8
[2019-12-02] MEDS: ACETAMINOPHEN 500 MG TAB PO SCH (05:27)
[2019-12-02] MEDS: METOPROLOL TAR 25 MG TAB PO SCH (05:27)
--- NOTE | 2019-12-02 07:37 | P.PN ---
Subjective Date of Service: 12/01/19 PATIENT STILL HAD A FEVER TODAY. HE DOES FEEL BETTER HOWEVER. I WILL GO AHEAD AND MONITOR HIM BECAUSE HE HAD A TEMP OF A 102 TODAY. CHEST X-RAY FINDINGS OF PRETTY MUCH CLEARED UP. URINE CULTURE AND BLOOD CULTURES HAVE BEEN NEGATIVE UP TO THIS POINT. REPEAT ARE PENDING. SPOKE WITH PULMONARY AND THEY ARE AGREEABLE THAT PATIENT SHOULD BE ABLE TO GO HOME AND WILL FOLLOW HIM UP FOR COVID-19 SYMPTOMS. CONTINUE CURRENT MEDICATIONS AT THIS TIME. Review of Systems 10-point ROS is otherwise unremarkable Physical Examination - Vital Signs Temperature: 97.7 F Blood Pressure: 117/82 Pulse: 83 Respirations: 15 Pulse Ox (%): 97 - Physical Exam General: Alert, In no apparent distress, Oriented x3 Respiratory: Clear to auscultation bilaterally, Normal air movement Cardiovascular: Regular rate/rhythm, Normal S1 S2, No murmurs Gastrointestinal: Normal bowel sounds, Soft and benign, Non-distended, No tenderness Musculoskeletal: No clubbing, No swelling, No tenderness Neurological: Sensation intact, Cranial nerves 3-12 intact - Studies Microbiology Data (last 24 hrs): 11/26/19 11:34 Blood - Blood Aerobic Blood Culture - Final No growth in 5 days. 11/26/19 11:34 Blood - Blood Anaerobic Blood Culture - Final No growth in 5 days. 11/26/19 11:24 Blood - Blood Aerobic Blood Culture - Final No growth in 5 days. 11/26/19 11:24 Blood - Blood Anaerobic Blood Culture - Final No growth in 5 days. Medications List Reviewed: Yes Assessment & Plan - Problems (Diagnosis) (1) COVID-19 Current Visit: Yes Status: Acute (2) Acute myocardial infarction Current Visit: Yes Status: Acute (3) Sepsis Current Visit: Yes Status: Acute (4) Leukocytosis Current Visit: Yes Status: Acute (5) Acute renal failure Current Visit: Yes Status: Acute Qualifiers: Acute renal failure type: unspecified Qualified Code(s): N17.9 - Acute kidney failure, unspecified - Plan Plan: Continue current plan of care at this time 1. Continue with steroids and antibiotics 2. Appetite is improved. Hep-Lock IV 3. O2 sats are stable 4. Patient remains having fever. This possibly is a sequelae to his COVID-19 pneumonia. Spoke with Pulmonary and plan of care is to Dc in the morning with steroids and Levaquin 5. Monitor blood pressure and blood sugars closely 6. GI and DVT prophylaxis Discharge Plan: Home Plan to discharge in: Greater than 2 days - Advance Directives Does patient have a Living Will: No Does patient have a Durable POA for Healthcare: No - Code Status/Comfort Care Code Status: Full Code Critical Care: No Time Spent Managing PTS Care (In Minutes): 35
--- NOTE | 2019-12-02 07:47 | P.DS ---
Discharge Date: 12/02/19 Disposition: ROUTINE DISCHARGE Discharge Condition: GOOD Reason for Admission: Shock dizziness - Problems (1) COVID-19 Status: Acute (2) Acute myocardial infarction Status: Acute (3) Sepsis Status: Acute (4) Leukocytosis Status: Acute (5) Acute renal failure Status: Acute Qualifiers: Acute renal failure type: unspecified Qualified Code(s): N17.9 - Acute kidney failure, unspecified Brief History of Present Illness: Patient is 54 years of age she was diagnosed with kang virus 5 weeks ago became sick over the weekend started on Thursday where he started having some fever and started complaining of shortness of breath admission precipitated by year dizziness and was found to have low blood pressure apart from hypertension he has no other medical problems as some problems with his legs. Patient was found have elevated troponins. Plan was to do heart catheterization. Hospital Course: Patient had cardiac catheterization which did not reveal any significant atherosclerotic disease. Patient continued to have low-grade fever, and we were not able really a valve the etiology. It was felt that it was related to COVID- 19 pneumonia. At this time, patient is stable for discharge with outpatient follow-up. Continue with Medrol Dosepak. Continue with antibiotic therapy. Vital Signs/Physical Exam: Temp Pulse Resp BP Pulse Ox 97.7 F 83 15 117/82 97 12/02/19 07:47 12/02/19 07:47 12/02/19 07:47 12/02/19 07:47 12/02/19 07:47 General: Alert, In no apparent distress, Oriented x3 Laboratory Data at Discharge: WBC 20.6 K/uL (4.3-10.9) H* D 12/01/19 04:55 Hgb 11.9 g/dL (13.6-17.9) L 12/01/19 04:55 Hct 34.9 % (39.6-49.0) L 12/01/19 04:55 Plt Count 271 K/uL (152-406) 12/01/19 04:55 PT 13.9 SECONDS (9.5-12.5) H 11/26/19 12:03 INR 1.18 11/26/19 12:03 APTT 39.2 SECONDS (24.3-36.9) H 11/27/19 09:10 Sodium 139 mmol/L (136-145) 12/01/19 04:55 Potassium 4.1 mmol/L (3.5-5.1) 12/01/19 04:55 BUN 24 mg/dL (7-18) H 12/01/19 04:55 Creatinine 0.64 mg/dL (0.55-1.3) 12/01/19 04:55 Glucose 134 mg/dL (74-106) H 12/01/19 04:55 Phosphorus 2.2 mg/dL (2.5-4.9) L 11/29/19 11:20 Magnesium 2.1 mg/dL (1.8-2.4) 11/29/19 11:20 Total Bilirubin Cancelled 11/28/19 06:00 AST Cancelled 11/28/19 06:00 ALT Cancelled 11/28/19 06:00 Alkaline Phosphatase Cancelled 11/28/19 06:00 Troponin I 0.60 ng/mL (0.0-0.045) H* 11/29/19 04:59 Triglycerides 289 mg/dL (<150) H 11/26/19 15:00 Cholesterol 87 mg/dL (<200) 11/26/19 15:00 HDL Cholesterol 10 mg/dL (40-60) L 11/26/19 15:00 Cholesterol/HDL Ratio 8.70 11/26/19 15:00 Amylase 8 U/L (25-115) L 11/26/19 11:24 Lipase 46 U/L (73-393) L 11/26/19 11:24 Home Medications: hydroCHLOROthiazide [Hydrochlorothiazide*] 12.5 mg PO DAILY 11/26/19 Acetaminophen 500 mg PO Q6H PRN #30 tablet 12/02/19 Apixaban [Eliquis] 2.5 mg PO BID #14 tablet 12/02/19 Ascorbic Acid [Vitamin C] 1,000 mg PO DAILY #30 tablet.er 12/02/19 Levofloxacin [Levaquin] 500 mg PO DAILY #5 tablet 12/02/19 Methylprednisolone [Medrol dosepack] 4 mg PO DIRECTED #1 lisa 12/02/19 Metoprolol Tartrate [Lopressor*] 25 mg PO BID 6AM 6PM #60 tab 12/02/19 New Medications: Acetaminophen 500 mg PO Q6H PRN #30 tablet PRN Reason: FEVER Apixaban [Eliquis] 2.5 mg PO BID #14 tablet Levofloxacin [Levaquin] 500 mg PO DAILY #5 tablet Metoprolol Tartrate [Lopressor*] 25 mg PO BID 6AM 6PM #60 tab Methylprednisolone [Medrol dosepack] 4 mg PO DIRECTED #1 lisa Ascorbic Acid [Vitamin C] 1,000 mg PO DAILY #30 tablet.er Patient Discharge Instructions: OK TO DC IV AND DC HOME. FOLLOW-UP WITH PRIMARY CARE PROVIDER IN 1-2 WEEKS. FOLLOW-UP WITH PULMONARY IN 1-2 WEEKS. RETURN TO THE ER IF SYMPTOMS WORSENS. CALL or TEXT DR. ONOFRE AT [phone] IF ANY QUESTIONS REGARDING HOSPITAL STAY. PLEASE CALL THE FLOOR AT [phone] IF ANY MEDICATION OR NURSING QUESTIONS. Diet: AHA Activity: Fall precautions Time spent managing pt's care (in minutes): 35
[2019-12-02] MEDS: CLOPIDOGREL 75 MG TABLET PO SCH (08:44)
[2019-12-02] MEDS: dexAMETHasone 4 MG/ML VIAL IV SCH (08:44)
[2019-12-02] MEDS: CEFTRIAXONE/SWI 1gm 1 GM/10 ML SYR IVP SCH (08:44)
[2019-12-02] MEDS: ASPIRIN EC 81 MG TAB PO SCH (08:47)
[2019-12-02] MEDS: ENOXAPARIN 100 MG/ML SYR SQ SCH (08:47)
[2019-12-02] MEDS: VANCOMYCIN 2 GM in NA CHLORIDE 0.9% 500 ML IVPB SCH (08:52)
[2019-12-02 09:24] VITALS: O2SAT 96
--- NOTE | 2019-12-02 10:11 | P.PN ---
Subjective Date of Service: 12/02/19 Chief Complaint: Cope virus infection Subjective: Improving (Patient is improving he is doing well he has a fever I will probably has had recurrent cope virus infection) Review of Systems General: Weakness Respiratory: Shortness of Breath Physical Examination - Vital Signs Temperature: 97.9 F Blood Pressure: 122/79 Pulse: 96 Respirations: 20 Pulse Ox (%): 95 - Physical Exam General: Alert, Oriented x3 Respiratory: Clear to auscultation bilaterally - Studies Microbiology Data (last 24 hrs): 11/26/19 11:34 Blood - Blood Aerobic Blood Culture - Final No growth in 5 days. 11/26/19 11:34 Blood - Blood Anaerobic Blood Culture - Final No growth in 5 days. 11/26/19 11:24 Blood - Blood Aerobic Blood Culture - Final No growth in 5 days. 11/26/19 11:24 Blood - Blood Anaerobic Blood Culture - Final No growth in 5 days. Medications List Reviewed: Yes Assessment & Plan - Problems (Diagnosis) (1) COVID-19 Current Visit: Yes Status: Acute Plan: Patient is doing much better he has no fever now white count is declining cultures are all negative probably all cope virus infection agree with discharge on levofloxacin and prednisone anticoagulation and possible
[2019-12-02] MEDS ORDERED: ACETAMINOPHEN 500 MG TAB PO PRN (14:00)
[2019-12-04 14:58] VITALS: BP 117/82; TEMP 97.7
== END 2019-12-02 12:10 | disposition home or self-care (01) | DRG 871 ==
LOC: ER 10:54 → ERHOLD 14:38 → 3RD-ICU 15:19
PROVIDERS: ADMIT Internal Medicine Sleep Medicine; ATTEND Hospitalist
PROC: 4A023N7 Measurement of Cardiac Sampling and Pressure, Left Heart, Percutaneous Approach (ICD-10-PCS; principal; 2019-11-29)
PROC: B2111ZZ Fluoroscopy of Multiple Coronary Arteries using Low Osmolar Contrast (ICD-10-PCS; 2019-11-29)
DX: A41.89 Other specified sepsis (principal); U07.1 COVID-19; R65.21 Severe sepsis with septic shock; J12.89 Other viral pneumonia; E43 Unspecified severe protein-calorie malnutrition; I21.9 Acute myocardial infarction, unspecified; N17.9 Acute kidney failure, unspecified; I10 Essential (primary) hypertension; I48.91 Unspecified atrial fibrillation; R77.8 Other specified abnormalities of plasma proteins; Z68.34 Body mass index [BMI] 34.0-34.9, adult
CPT/HCPCS: 36415; 71045; 71250; 71275; 80048; 80053; 80061; 80076; 80202; 81003; 81015; 82150; 82533; 82550; 82553; 82565; 82728; 82947; 83605; 83690; 83735; 83880; 84100; 84145; 84484; 85025; 85027; 85379; 85610; 85652; 85730; 86140; 86850; 86900; 86901; 87040; 87070; 87081; 87086; 87088; 87205; 87804; 93005; 93306; 93454; 94760; 99285; C1760; C1893; J0456; J0583; J0696; J1100; J1160; J1644; J1650; J2250; J3010; J3370; J7030; J7040; Q9967; U0003